=== PATIENT | male | born 1980 | race Two or more races ===

== ENCOUNTER 2020-06-11 12:44 | Emergency (ER) | payer BC ==
[2020-06-11 13:16] VITALS: BP 126/93; TEMP 98.3; BMI 26.7
[2020-06-11 13:48] VITALS: PULSE 103
== END 2020-06-11 14:01 | disposition home or self-care (01) ==
LOC: JER 12:44 → JERFT 12:44
DX: L66.2 Folliculitis decalvans (principal)
CPT/HCPCS: 99282-25